=== PATIENT | male | born 1955 | race Caucasian/White ===

== ENCOUNTER 2023-02-16 10:21 | Day surgery (SDC) | payer MEDICARE, OTHER ==
[~2023-02-16] VITALS: Ht 188 cm; Wt 106.6 kg
[~2023-02-16 10:21] MED LIST: ACETYLCHOLINE OPHTH SOLN 1% 2ML (MIOCHOL-E) As Ordered ONE; AMLO10TA PO; BSS IRRIG/VANCO(10MG)/TOBRA(5MG)/EPINEPH(1:1000-0.5CC)500ML BAG-ORONLY IR ONE; BUSP10TA PO; CEFUROXIME 1MG/0.1ML INTRACAMERAL INJ As Ordered ONE; CYCLOPENTOLATE 1% OPHTH SOLN 2ML BTL OS SCH; CYPR4TA PO; FINA5TAB2 PO; FLOM0.4C39 PO; HYDR12.55 PO; LEVO50TA5 PO; LIDOCAINE 1% SDV 5ML VIAL As Ordered ONE; LIDOCAINE 3.5 % 1ML OPHTH TOPICAL GEL OU ONE; LISI30TA4 PO; METO1TAB32 PO; MIRT1TAB16 PO; OFLOXACIN 0.3 % (OCUFLOX) OPTH SOL 5ML OS ONE; PHENYLEPHRINE 10% OPHTH SOL 5ML OS PRN; PHENYLEPHRINE 2.5% OPHTH SOL 2ML OS SCH; POTA-164 PO; PROVISC 10 MG/ML 0.85ML SYRINGE As Ordered ONE; TROPICAMIDE 1% OPHTH SOLN 15ML OS SCH; VENL75TA2 PO; VITMTA PO
[2023-02-16] MEDS ORDERED: fentaNYL 100 MCG/2 ML INJECTION As Ordered ONE ×2 (12:11→12:17)
[2023-02-16] MEDS ORDERED: MIDAZOLAM INJ 2MG/2ML VIAL As Ordered ONE ×2 (12:11→12:17)
[2023-02-16 12:26] VITALS: BP 155/83; TEMP 97.4; O2SAT 96
== END 2023-02-16 12:48 | disposition home or self-care (01) ==
LOC: M SDC 10:21
PROVIDERS: ATTEND Ophthalmology
DX: H25.12 Age-related nuclear cataract, left eye (principal); G47.30 Sleep apnea, unspecified; N40.0 Benign prostatic hyperplasia without lower urinary tract symptoms; I10 Essential (primary) hypertension; E03.9 Hypothyroidism, unspecified; Z87.891 Personal history of nicotine dependence; Z79.899 Other long term (current) drug therapy; Z79.890 Hormone replacement therapy
CPT/HCPCS: 66984; J0697; J2250; J3010; V2632

== ENCOUNTER 2025-01-30 06:13 | Day surgery (SDC) | payer OTHER, MEDICARE ==
[~2025-01-30] VITALS: Ht 188 cm; Wt 109.3 kg
[~2025-01-30 06:13] MED LIST changes: -ACETYLCHOLINE OPHTH SOLN 1% 2ML (MIOCHOL-E) As Ordered ONE; +AMLO-751 PO; -AMLO10TA PO; -BSS IRRIG/VANCO(10MG)/TOBRA(5MG)/EPINEPH(1:1000-0.5CC)500ML BAG-ORONLY IR ONE; +BUSP15TA48 PO; -CEFUROXIME 1MG/0.1ML INTRACAMERAL INJ As Ordered ONE; -CYCLOPENTOLATE 1% OPHTH SOLN 2ML BTL OS SCH; -CYPR4TA PO; +CYPR4TAB36 PO; -FLOM0.4C39 PO; -LIDOCAINE 1% SDV 5ML VIAL As Ordered ONE; -LIDOCAINE 3.5 % 1ML OPHTH TOPICAL GEL OU ONE; +MULT1CAP PO; -OFLOXACIN 0.3 % (OCUFLOX) OPTH SOL 5ML OS ONE; +PHENYLEPHRINE 10% OPHTH SOL 5ML OD PRN; -PHENYLEPHRINE 10% OPHTH SOL 5ML OS PRN; -PHENYLEPHRINE 2.5% OPHTH SOL 2ML OS SCH; +POTA-150 PO; -PROVISC 10 MG/ML 0.85ML SYRINGE As Ordered ONE; +TAMS-18 PO; -TROPICAMIDE 1% OPHTH SOLN 15ML OS SCH
[2025-01-30] MEDS ORDERED: MIDAZOLAM INJ 2 MG/2 ML VIAL As Ordered ONE (06:44)
[2025-01-30] MEDS: OFLOXACIN 0.3 % (OCUFLOX) OPTH SOL 5ML OD ONE (06:54)
[2025-01-30] MEDS: LIDOCAINE 3.5% 1 ML OPHTH TOPICAL GEL OU ONE (06:54)
[2025-01-30] MEDS: CYCLOPENTOLATE 1% OPHTH SOLN 2 ML BTL OD SCH (06:55)
[2025-01-30] MEDS: PHENYLEPHRINE 2.5% OPHTH SOL 2ML OD SCH (06:55)
[2025-01-30] MEDS: TROPICAMIDE 1% OPHTH SOLN 15ML OD SCH (06:55)
[2025-01-30] MEDS: BSS IRRIG/VANCO(10MG)/TOBRA(5MG)/EPINEPH(1:1000-0.5CC)500ML BAG-ORONLY As Ordered ONE (07:47)
[2025-01-30] MEDS: LIDOCAINE 1% SDV 5 ML VIAL As Ordered ONE (07:47)
[2025-01-30] MEDS: CEFUROXIME 1 MG/0.1 ML INTRACAMERAL INJ As Ordered ONE (07:47)
[2025-01-30 07:59] VITALS: BP 148/81; TEMP 97.9; O2SAT 96
== END 2025-01-30 08:12 | disposition home or self-care (01) ==
LOC: M SDC 06:13
PROVIDERS: ATTEND Ophthalmology
DX: H25.11 Age-related nuclear cataract, right eye (principal); G47.30 Sleep apnea, unspecified; Z79.899 Other long term (current) drug therapy; Z87.891 Personal history of nicotine dependence
CPT/HCPCS: 66984; J0697; J2250; J3010; V2632